=== PATIENT | female | born 1965 | race Caucasian/White ===

== ENCOUNTER 2018-09-09 11:46 | Day surgery (SDC) | payer MEDICAID ==
[2018-09-09] MEDS ORDERED: LIDOCAINE 2% MDV (20MG/ML) 20ML VIAL IV ONE (11:47)
[2018-09-09] MEDS ORDERED: PROPOFOL 10 MG/ML VIAL IV ONE (11:47)
--- NOTE | 2018-09-10 09:00 | Operative Note ---
DATE OF SURGERY: 09/09/2018 OPERATION: COLONOSCOPY to the cecum with cold biopsy forceps polypectomy x1. INDICATION: Family history of colon cancer (patient's sister), prior history of polyps. The patient presents today for the first time for screening (possible surveillance). ANESTHESIA: Intravenous sedation was administered by the department of anesthesiology and included Diprivan titrated to effect. PROCEDURE: Following informed consent from this alert individual including a discussion of the risks and benefits of the procedure and an opportunity for the patient to ask questions, the patient was in the left lateral decubitus position. A digital rectal examination was performed. There were external skin tags noted. No masses were probable. Following this, the Olympus [id number] video colonoscope was inserted into the rectum without resistance. The rectal mucosa had a normal appearance with normal folds and distensibility. It was further advanced up to the level of the cecum without difficulty. There was a diminutive 3 mm polyp noted in the sigmoid colon which was removed with biopsy forceps. The cecum was defined by noting the appendiceal orifice and ileocecal valve. Colon preparation was good. From the base of the cecum, the colonoscope was then withdrawn. No changes were noted throughout the bowel until the rectum was reached. Retroflexion within the rectum revealed moderate-size internal hemorrhoids. The endoscope was straightened and removed. The patient tolerated the procedure well and was returned to the recovery area in stable condition. IMPRESSION: 1. Moderate-size internal hemorrhoids. 2. Anal skin tags. 3. Diminutive 3 mm polyp removed from the sigmoid colon with biopsy forceps. RECOMMENDATIONS: Further recommendations will be forthcoming pending results of pathology obtained today. The patient has experienced rectal bleeding presumed related to the internal hemorrhoids. For this reason, I would refer her to a surgeon for removal. She most likely will have recheck colonoscopy in 5 years' time pending pathology. As always, thank you for allowing me to participate in the care of your patient. CC: MD MAURISIO Whitehead
== END 2018-09-09 13:40 | disposition home or self-care (01) ==
LOC: HOP 11:46
PROVIDERS: ATTEND Internal Medicine Gastroenterology
DX: Z12.11 Encounter for screening for malignant neoplasm of colon (principal); Z80.0 Family history of malignant neoplasm of digestive organs; Z86.010 Personal history of colon polyps; K63.5 Polyp of colon